=== PATIENT | female | born 1990 | race American Indian/Alaskan Native ===

== ENCOUNTER 2018-01-07 15:06 | Emergency (ER) | payer SELFPAY ==
[2018-01-07] MEDS ORDERED: BENADRYL IV ONE (16:04)
[2018-01-07] MEDS ORDERED: ZOFRAN IV ONE (16:04)
[2018-01-07] MEDS ORDERED: REGLAN IV ONE (16:04)
[2018-01-07] MEDS ORDERED: NACL 0.9% 1000 ML 1,000 ML IV ONE (16:27)
[2018-01-07] MEDS ORDERED: TORADOL IV ONE (16:28)
[2018-01-07 16:32] LABS: Basophils # (Auto) 0.1 K/mm3 (0.0-0.1); Basophils % (Auto) 0.9 % (0.0-1.8); Eosinophils # (Auto) 0.1 K/mm3 (0.0-0.4); Eosinophils % (Auto) 0.5 % (0.0-4.3); Hematocrit 38.7 % (30.3-42.9); Hemoglobin 13.5 gm/dl (10.1-14.3); Lymphocytes # (Auto) 1.8 K/mm3 (1.2-5.4); Lymphocytes % (Auto) 17.8 % (13.4-35.0); Mean Corpuscular HGB Conc 35 % (30-34); Mean Corpuscular Hemoglobin 33 pg (28-32); Mean Corpuscular Volume 94 fl (79-97); Monocytes # (Auto) 1.2 K/mm3 (0.0-0.8); Monocytes % (Auto) 11.6 % (0.0-7.3); Platelet Count 271 K/mm3 (140-440); Red Blood Count 4.11 M/mm3 (3.65-5.03); Red Cell Distribution Width 13.5 % (13.2-15.2)
[2018-01-07 16:43] LABS: BUN/Creatinine Ratio 15; Blood Urea Nitrogen 9 mg/dL (7-17); Calcium 9.6 mg/dL (8.4-10.2); Hemolysis Index 117
--- NOTE | 2018-01-07 17:43 | XRay Report ---
FINAL REPORT EXAM: XR CHEST ROUTINE 2V HISTORY: cough TECHNIQUE: PA and lateral views of the chest Comparison: None FINDINGS: There is no evidence of infiltrate, pneumothorax or pleural fluid collection. The cardiomediastinal silhouette is normal in appearance. The bony structures are unremarkable. IMPRESSION: 1. No evidence of an acute pulmonary process.
--- NOTE | 2018-01-07 17:53 | Emergency Department Report ---
- General Chief Complaint: Upper Respiratory Infection Stated Complaint: CANT BREATH/SIDE PAIN Time Seen by Provider: 01/07/18 16:22 Source: patient Mode of arrival: Ambulatory Limitations: No Limitations - History of Present Illness Initial Comments: A 70-year-old female with past medical history of asthma presents to the hospital complains of headache, body aches, productive cough, intermittent nausea vomiting, no light sensitivity for the past 3 days. Patient complains of a global headache that has been constant and severe. Patient was apparently tearful in triage prior to my evaluation secondary to pain. Positive photosensitivity, intermittent nausea and vomiting. Patient denies neck pain, neck stiffness, focal weakness or numbness. Denies shortness of breath at this time. She denies history of migraines or previous headaches. Patient had left flank pain yesterday that has since resolved. - Related Data Previous Rx's Medication Instructions Recorded Last Taken Type ALBUTEROL Inhaler [ProAir HFA 2 puff IH QID PRN #1 inhalation 12/11/15 Unknown Rx Inhaler] Albuterol *Only Ed* [Proventil 2.5 mg IH Q4H PRN #1 nebu 12/11/15 Unknown Rx 0.5% NEBS] Amoxicillin/K Clav Tab [Augmentin 1 tab PO Q12HR #20 tab 12/11/15 Unknown Rx 875 mg] Prednisone [predniSONE 10 mg 10 mg PO .TAPER #1 tab.ds.pk 12/11/15 Unknown Rx (6-Day Pack, 21 Tabs)] Azithromycin [Zithromax Z-BREN] 1 dose PO DAILY 5 Days tab 01/07/18 Unknown Rx Benzonatate [Tessalon Perles] 100 mg PO Q8HR PRN #30 capsule 01/07/18 Unknown Rx Butalb/Acetamin/Caff 50-325-40 1 tab PO Q6HR PRN #20 tab 01/07/18 Unknown Rx [Fioricet] Ibuprofen [Motrin] 600 mg PO Q8H PRN #30 tablet 01/07/18 Unknown Rx Promethazine [Phenergan TAB] 25 mg PO Q8HR PRN #20 tab 01/07/18 Unknown Rx Allergies Allergy/AdvReac Type Severity Reaction Status Date / Time No Known Allergies Allergy Verified 05/19/16 17:34 ED Review of Systems ROS: Stated complaint: CANT BREATH/SIDE PAIN Other details as noted in HPI Comment: All other systems reviewed and negative ED Past Medical Hx - Past Medical History Hx Asthma: Yes - Surgical History Hx Breast Surgery: Yes (LEFT BREAST (3 NODULES REMOVED)) - Social History Smoking Status: Never Smoker Substance Use Type: None - Medications Home Medications: Home Medications Medication Instructions Recorded Confirmed Last Taken Type ALBUTEROL Inhaler [ProAir HFA 2 puff IH QID PRN #1 inhalation 12/11/15 Unknown Rx Inhaler] Albuterol *Only Ed* [Proventil 2.5 mg IH Q4H PRN #1 nebu 12/11/15 Unknown Rx 0.5% NEBS] Amoxicillin/K Clav Tab [Augmentin 1 tab PO Q12HR #20 tab 12/11/15 Unknown Rx 875 mg] Prednisone [predniSONE 10 mg 10 mg PO .TAPER #1 tab.ds.pk 12/11/15 Unknown Rx (6-Day Pack, 21 Tabs)] Azithromycin [Zithromax Z-BREN] 1 dose PO DAILY 5 Days tab 01/07/18 Unknown Rx Benzonatate [Tessalon Perles] 100 mg PO Q8HR PRN #30 capsule 01/07/18 Unknown Rx Butalb/Acetamin/Caff 50-325-40 1 tab PO Q6HR PRN #20 tab 01/07/18 Unknown Rx [Fioricet] Ibuprofen [Motrin] 600 mg PO Q8H PRN #30 tablet 01/07/18 Unknown Rx Promethazine [Phenergan TAB] 25 mg PO Q8HR PRN #20 tab 01/07/18 Unknown Rx ED Physical Exam - General Limitations: No Limitations - Other Other exam information: General: No limitations, patient is alert in no acute distress Head exam: Atraumatic, normocephalic Eyes exam: Normal appearance, pupils equal reactive to light, extraocular movements intact ENT: Moist mucous membrane, normal oropharynx Neck exam: Normal inspection, full range of motion, no meningismus nontender Respiratory exam: Clear to auscultation bilateral, no wheezes, rales, crackles Cardiovascular: Normal rate and rhythm, normal heart sounds Abdomen: Soft, nondistended, and nontender, with normal bowel sounds, no rebound, or guarding Extremity: Full range of motion normal inspection no deformity Back: Normal Inspection, full range of motion, no tenderness Neurologic: Alert, oriented x3, cranial nerves intact, no motor or sensory deficit Psychiatric: normal affect, normal mood Skin: Warm, dry, intact ED Course Vital Signs 01/07/18 01/07/18 01/07/18 15:17 15:54 16:00 Temperature 99.8 F H Pulse Rate 92 H 103 H 99 H Respiratory 20 15 Rate Blood Pressure 117/73 107/65 Blood Pressure [Left] O2 Sat by Pulse 98 96 100 Oximetry 01/07/18 01/07/18 01/07/18 16:16 16:17 16:30 Temperature 100.3 F H Pulse Rate 88 92 H Respiratory 20 19 Rate Blood Pressure 99/70 99/70 Blood Pressure [Left] O2 Sat by Pulse 100 100 Oximetry 01/07/18 01/07/18 01/07/18 16:46 17:00 17:24 Temperature Pulse Rate 72 78 88 Respiratory 17 24 20 Rate Blood Pressure 103/70 103/70 99/63 Blood Pressure [Left] O2 Sat by Pulse 100 93 Oximetry 01/07/18 01/07/18 01/07/18 17:30 17:46 18:00 Temperature Pulse Rate 74 67 80 Respiratory 21 19 14 Rate Blood Pressure 99/63 99/63 107/61 Blood Pressure 99/63 [Left] O2 Sat by Pulse 100 100 100 Oximetry 01/07/18 01/07/18 01/07/18 18:16 18:30 18:46 Temperature Pulse Rate 63 60 73 Respiratory 16 17 15 Rate Blood Pressure 107/61 107/61 107/61 Blood Pressure [Left] O2 Sat by Pulse 99 99 100 Oximetry ED Medical Decision Making - Lab Data Result diagrams: 01/07/18 Unknown 01/07/18 Unknown Lab Results 01/07/18 01/07/18 01/07/18 Range/Units 16:43 Unknown Unknown WBC 10.4 (4.5-11.0) K/mm3 RBC 4.11 (3.65-5.03) M/mm3 Hgb 13.5 (10.1-14.3) gm/dl Hct 38.7 (30.3-42.9) % MCV 94 (79-97) fl MCH 33 H (28-32) pg MCHC 35 H (30-34) % RDW 13.5 (13.2-15.2) % Plt Count 271 (140-440) K/mm3 Lymph % (Auto) 17.8 (13.4-35.0) % Darke % (Auto) 11.6 H (0.0-7.3) % Eos % (Auto) 0.5 (0.0-4.3) % Baso % (Auto) 0.9 (0.0-1.8) % Lymph # 1.8 (1.2-5.4) K/mm3 Darke # 1.2 H (0.0-0.8) K/mm3 Eos # 0.1 (0.0-0.4) K/mm3 Baso # 0.1 (0.0-0.1) K/mm3 Seg Neutrophils % 69.2 (40.0-70.0) % Seg Neutrophils # 7.2 (1.8-7.7) K/mm3 Sodium 139 (137-145) mmol/L Potassium 4.3 (3.6-5.0) mmol/L Chloride 104.3 (98-107) mmol/L Carbon Dioxide 17 L (22-30) mmol/L Anion Gap 22 mmol/L BUN 9 (7-17) mg/dL Creatinine 0.6 L (0.7-1.2) mg/dL Estimated GFR > 60 ml/min BUN/Creatinine Ratio 15 % Glucose 85 (65-100) mg/dL Calcium 9.6 (8.4-10.2) mg/dL HCG, Qual Negative (Negative) - Radiology Data Radiology results: report reviewed FINAL REPORT EXAM: CT HEAD/BRAIN WO CON HISTORY: walsh x 3 days TECHNIQUE: 2.5 millimeter axial images from the skullbase to the vertex. Comparison: None FINDINGS: There is no evidence of an acute intracranial process, intracranial hemorrhage or mass effect. The ventricles are normal size. The visualized portions of the orbits, paranasal and mastoid sinuses are notable for mild bilateral ethmoid sinus mucosal thickening. The bony structures are unremarkable in appearance. IMPRESSION: 1. No evidence of an acute intracranial process, intracranial hemorrhage or mass effect. 2. Mild bilateral ethmoid sinus mucosal thickening. If there is a clinical suspicion of an acute intracranial process and if further imaging is required, MRI may be helpful. FINAL REPORT EXAM: XR CHEST ROUTINE 2V HISTORY: cough TECHNIQUE: PA and lateral views of the chest Comparison: None FINDINGS: There is no evidence of infiltrate, pneumothorax or pleural fluid collection. The cardiomediastinal silhouette is normal in appearance. The bony structures are unremarkable. IMPRESSION: 1. No evidence of an acute pulmonary process. - Medical Decision Making Pain improved with ed tx pt will be tx for sinusitis, walsh, and viral syndrome. out pt f/u encouraged - Differential Diagnosis migraine, sinusitis, viral syndrome, pneumonia, UTI Critical Care Time: No Critical care attestation.: If time is entered above; I have spent that time in minutes in the direct care of this critically ill patient, excluding procedure time. ED Disposition Clinical Impression: Viral syndrome, Ethmoid sinusitis, Headache Disposition: TO HOME OR SELFCARE Is pt being admited?: No Does the pt Need Aspirin: No Condition: Stable Instructions: Viral Syndrome (ED), Acute Headache (ED), Sinusitis (ED) Additional Instructions: Take the medication as prescribed. Follow-up with doctor or clinic provided or with the doctor of your choice. Return if symptoms worsen as indicated by your discharge instructions. Prescriptions: Azithromycin [Zithromax Z-BREN] 1 dose PO DAILY 5 Days tab Benzonatate [Tessalon Perles] 100 mg PO Q8HR PRN #30 capsule PRN Reason: Cough Butalb/Acetamin/Caff 50-325-40 [Fioricet] 1 tab PO Q6HR PRN #20 tab PRN Reason: Headache Ibuprofen [Motrin] 600 mg PO Q8H PRN #30 tablet PRN Reason: Pain Promethazine [Phenergan TAB] 25 mg PO Q8HR PRN #20 tab PRN Reason: Nausea Referrals: FABIOLA SAMANO MD [Primary Care Provider] - 3-5 Days MICHAEL FUNK MD [Staff Physician] - 3-5 Days [facility] [Provider Group] - 3-5 Days Time of Disposition: 19:20
--- NOTE | 2018-01-07 18:28 | Cat Scan Report ---
FINAL REPORT EXAM: CT HEAD/BRAIN WO CON HISTORY: walsh x 3 days TECHNIQUE: 2.5 millimeter axial images from the skullbase to the vertex. Comparison: None FINDINGS: There is no evidence of an acute intracranial process, intracranial hemorrhage or mass effect. The ventricles are normal size. The visualized portions of the orbits, paranasal and mastoid sinuses are notable for mild bilateral ethmoid sinus mucosal thickening. The bony structures are unremarkable in appearance. IMPRESSION: 1. No evidence of an acute intracranial process, intracranial hemorrhage or mass effect. 2. Mild bilateral ethmoid sinus mucosal thickening. If there is a clinical suspicion of an acute intracranial process and if further imaging is required, MRI may be helpful.
[2018-01-07 19:53] VITALS: BP 99/60
== END 2018-01-07 19:54 | disposition home or self-care (01) ==
LOC: ED 15:06
DX: J32.2 Chronic ethmoidal sinusitis (principal); B34.9 Viral infection, unspecified; J45.909 Unspecified asthma, uncomplicated
CPT/HCPCS: 36415; 70450; 71046; 80048; 84703; 85025; 96361; 96374; 96375; 99284; J1200; J1885; J2765; J7030